=== PATIENT | male | born 1985 ===

== ENCOUNTER 2016-10-19 15:11 | Emergency (ER) | payer OTHER ==
--- NOTE | 2016-10-19 15:41 | ER NURSING DOCUMENTATION ---
Nurse's Notes [facility] Name:Rolo Gresham Age:31 yrs Sex:Male :1985 Arrival Date:10/19/2016 Time:15:11 Bed6 Private MD: Diagnosis:Allergic Reaction Presentation: 10/19 15:15 Acuity: LORENZO 4 rh 15:20 Presenting complaint: Patient states: R zarate swelling and redness. Transition of care: lp Home. Notified ED Physician of Jean-Paul Hirsch notified. 15:20 Method Of Arrival: Private Vehicle lp Triage Assessment: 15:21 General: Appears in no apparent distress, Behavior is appropriate for age. Pain: lp Complains of pain in right zarate Pain currently is 2 out of 10 on a pain scale. EENT: No deficits noted. Neuro: No deficits noted. Cardiovascular: No deficits noted. Respiratory: No deficits noted. GI: No deficits noted. : No deficits noted. Derm: Skin is red, Skin temperature is warm. Musculoskeletal: No deficits noted. Historical: - Allergies: No known drug Allergies; - Home Meds: 1. None - PMHx: CELLULITIS; - PSHx: I&D of abdominal wound; - Tetanus: < 10 years. - Ebola Screening: : Patient negative for fever greater than or equal to 101.5 degrees Fahrenheit, and additional compatible Ebola Virus Disease symptoms. Patient denies exposure to infectious person. Patient denies travel to an Ebola-affected area in the 21 days before illness onset. . - Immunization history: Flu Vaccine < 1 year. - Social history: Smoking status: Patient states was never smoker of tobacco. Screenin:24 Infectious Disease Risk None. Abuse screen: Denies threats or abuse. Denies injuries lp from another. Nutritional screening: No deficits noted. Assessment: 15:24 See Triage Assessment done by same RN. lp Vital Signs: 15:23 BP 124 / 79; Pulse 78; Resp 16; Temp 99.1(TE); Pulse Ox 93% on R/A; Weight 63.5 kg; lp Height 6 ft. 0 in. (182.88 cm); Pain 3/10; 15:23 Body Mass Index 18.99 (63.50 kg, 182.88 cm) lp ED Course: 15:13 Patient arrived in ED. ama 15:15 Triage completed. rh 15:20 Shilpa Medina, RN is Primary Nurse. lp 15:[address] Jeong notified. lp 15:24 Valuables Remains with patient Patient has correct armband on for positive lp identification. Bed in low position. Call light in reach. 15:28 Sony Jeong MD is Attending Physician. jimbo Administered Medications: No medications were administered Outcome: 15:35 Discharge ordered by . jm 15:40 Discharged to home ambulatory. lp 15:40 Condition: good 15:40 Instructed on discharge instructions, follow up and referral plans. medication usage. 15:40 Patient left the ED. lp 07 11:57 Discharge F/U Call: Unable to reach: no answer st Signatures: Olena Todd RN RN Shilpa Gauthier, RN RN Sony Topete MD MD jm Averdick, Andrew, Minnie Wakefield
--- NOTE | 2016-10-19 15:41 | ER PHYSICIAN DOCUMENTATION ---
Physician Documentation [facility] Name:Rolo Gresham Age:31 yrs Sex:Male :1985 Arrival Date:10/19/2016 Time:15:11 Bed6 Private MD: Sony Thompson Disposition: 10/19/16 15:35 Discharged to Home/Self Care. Impression: Allergic Reaction. - Condition is Good. - Discharge Instructions: ALLERGIC REACTION, Other (Local). - Prescriptions for Keflex 500 mg Oral Capsule - take 1 capsule by ORAL route every 12 hours for 10 days; 20 capsule. Doxycycline Hyclate 100 mg Oral Tablet - take 1 tablet by ORAL route every 12 hours; 20 tablet. - Medical Reconciliation form form. - Follow up: Private Physician; When: As needed; Reason: Continuance of care. - Problem is new. - Symptoms have improved. - Notes: Try benadryl cream and H2 skye, like korey or zertec. USe for 2 days. If no luck or fever starts, then fill the antibiotics. HPI: 10/19 16:09 This 31 yrs old Unknown Male presents to ER via Private Vehicle with complaints of Leg jm Swelling - RIGHT, Leg Pain - RIGHT. 16:09 The patient presents with a rash, erythematous. The complaints affect the right zarate. jm Context: resulted from an unknown cause. Onset: The symptom(s)/episode began/occurred today. Pt w itchy rash to R zarate. He is worried it's cellulitis as he's had that before. No fever. Minimal pain. He wonders if he was bitten by a bug. Historical: - Allergies: No known drug Allergies; - Home Meds: 1. None - PMHx: CELLULITIS; - PSHx: I&D of abdominal wound; - Tetanus: < 10 years. - Ebola Screening: : Patient negative for fever greater than or equal to 101.5 degrees Fahrenheit, and additional compatible Ebola Virus Disease symptoms. Patient denies exposure to infectious person. Patient denies travel to an Ebola-affected area in the 21 days before illness onset. . - Immunization history: Flu Vaccine < 1 year. - Social history: Smoking status: Patient states was never smoker of tobacco. ROS: 16:09 MS/extremity: Positive for rash, swelling. jm 16:09 Skin: Positive for erythema, rash, swelling. Exam: 16:09 Constitutional: The patient appears alert, awake, comfortable. jm 16:09 Skin: cellulitis, is not appreciated, allergic rash vs cellulitis of the R zarate. Vital Signs: 15:23 BP 124 / 79; Pulse 78; Resp 16; Temp 99.1(TE); Pulse Ox 93% on R/A; Weight 63.5 kg; lp Height 6 ft. 0 in. (182.88 cm); Pain 3/10; 15:23 Body Mass Index 18.99 (63.50 kg, 182.88 cm) lp MDM: 15:28 Patient medically screened. 16:11 Differential diagnosis: allergic rash vs cellulitis. Data reviewed: vital signs, nurses jm notes, and as a result, I will discharge patient. Counseling: I had a detailed discussion with the patient and/or guardian regarding: the historical points, exam findings, and any diagnostic results supporting the discharge/admit diagnosis. ED course: I feel this is an allergic rash, but given hx I gave rx for abx and told pt to try Benadryl cream and zertec. Dispensed Medications: No medications were administered Signatures: Shilpa Medina, RN RN lp Sony Jeong MD MD jm
== END 2016-10-19 15:41 | disposition home or self-care (01) ==
LOC: ER 15:11
DX: R21 Rash and other nonspecific skin eruption (principal)
CPT/HCPCS: 99281